=== PATIENT | female | born 1975 | race American Indian/Alaskan Native ===

== ENCOUNTER 2017-08-15 23:05 | Emergency (ER) | payer OTHER ==
[2017-08-16] MEDS ORDERED: CATAPRES PO ONE (01:23)
[2017-08-16] MEDS ORDERED: CATAPRES ONE (01:24)
--- NOTE | 2017-08-16 02:47 | Emergency Department Report ---
- General Chief Complaint: Upper Respiratory Infection Stated Complaint: CONGESTION & COUGH Time Seen by Provider: 08/16/17 02:21 Source: patient Mode of arrival: Ambulatory Limitations: No Limitations - History of Present Illness Initial Comments: Patient is a 41-year-old female presents to ED with her daughter both complaining of cough congestion runny nose x 4 days. Patient states from the daughter around sick niece is about a week ago. She states cough is intermittent and nonproductive. She denies chest pain shortness of breath, dizziness, fever, chills, nausea, vomiting, headaches, blurry vision. MD Complaint: rhinorrhea, nasal congestion Severity: mild Consistency: intermittent Worsens With: nothing Context: sick contacts Associated Symptoms: denies: fever, chills, headache, shortness of breath, abdominal pain, nausea, vomiting, rash, confusion - Related Data Previous Rx's Medication Instructions Recorded Last Taken Type Acetamin/Codeine 120-12Mg/5 ml 5 ml PO TID PRN #60 ml 08/16/17 Unknown Rx [Tylenol/Codeine] D-Methorphan/PE/Acetaminophen 1 each PO TID #30 tablet 08/16/17 Unknown Rx [Tylenol Cold Multi-Symp Caplet] guaiFENesin ER [Mucinex ER] 600 mg PO Q12H #20 tablet.er 08/16/17 Unknown Rx Allergies Allergy/AdvReac Type Severity Reaction Status Date / Time No Known Allergies Allergy Unverified 08/16/17 00:28 ED Review of Systems ROS: Stated complaint: CONGESTION & COUGH Other details as noted in HPI Constitutional: denies: chills, fever Eyes: denies: eye pain, eye discharge, vision change ENT: denies: ear pain, throat pain Respiratory: cough. denies: shortness of breath, wheezing Cardiovascular: denies: chest pain, palpitations Endocrine: no symptoms reported Gastrointestinal: denies: abdominal pain, nausea, diarrhea Genitourinary: denies: urgency, dysuria, discharge Musculoskeletal: denies: back pain, joint swelling, arthralgia Skin: denies: rash, lesions Neurological: denies: headache, weakness, paresthesias Psychiatric: denies: anxiety, depression Hematological/Lymphatic: denies: easy bleeding, easy bruising ED Past Medical Hx - Past Medical History Previous Medical History?: Yes Hx Hypertension: Yes - Social History Smoking Status: Current Every Day Smoker - Medications Home Medications: Home Medications Medication Instructions Recorded Confirmed Last Taken Type Acetamin/Codeine 120-12Mg/5 ml 5 ml PO TID PRN #60 ml 08/16/17 Unknown Rx [Tylenol/Codeine] D-Methorphan/PE/Acetaminophen 1 each PO TID #30 tablet 08/16/17 Unknown Rx [Tylenol Cold Multi-Symp Caplet] guaiFENesin ER [Mucinex ER] 600 mg PO Q12H #20 tablet.er 08/16/17 Unknown Rx ED Physical Exam - General Limitations: No Limitations General appearance: alert, in no apparent distress - Head Head exam: Present: atraumatic, normocephalic - Eye Eye exam: Present: normal appearance - ENT ENT exam: Present: mucous membranes moist - Neck Neck exam: Present: normal inspection, full ROM. Absent: lymphadenopathy - Respiratory Respiratory exam: Present: normal lung sounds bilaterally. Absent: respiratory distress, wheezes, rales, rhonchi, chest wall tenderness - Cardiovascular Cardiovascular Exam: Present: regular rate, normal rhythm. Absent: systolic murmur, diastolic murmur, rubs, gallop - GI/Abdominal GI/Abdominal exam: Present: soft, normal bowel sounds - Extremities Exam Extremities exam: Present: normal inspection - Back Exam Back exam: Present: normal inspection - Neurological Exam Neurological exam: Present: alert, oriented X3 - Psychiatric Psychiatric exam: Present: normal affect, normal mood - Skin Skin exam: Present: warm, dry, intact, normal color. Absent: rash ED Course Vital Signs 08/15/17 08/16/17 08/16/17 23:52 00:31 01:24 Temperature 98.5 F 98.5 F Pulse Rate 96 H 96 H Respiratory 18 18 Rate Blood Pressure 184/108 184/108 184/108 Blood Pressure [Left] O2 Sat by Pulse 99 Oximetry 08/16/17 03:09 Temperature Pulse Rate 87 Respiratory 18 Rate Blood Pressure Blood Pressure 123/88 [Left] O2 Sat by Pulse 99 Oximetry ED Medical Decision Making - Radiology Data Radiology results: report reviewed, image reviewed FINAL REPORT PROCEDURE: XR CHEST ROUTINE 2V TECHNIQUE: PA and lateral chest radiographs were obtained. CPT 98081 HISTORY: congestion and yellow sputum COMPARISON: No prior studies are available for comparison. FINDINGS: Heart: Normal. Mediastinum/Vessels: Normal. Lungs/Pleural space: Normal. Bony thorax: No acute osseous abnormality. Other: IMPRESSION: Normal examination. Transcribed By: CO Dictated By: QUINN MOSLEY MD Electronically Authenticated By: QUINN MOSLEY MD Signed Date/Time: 08/15/17 2474 - Medical Decision Making 41-year-old female presents to the there are with cough ED course: Chest x-ray obtained. This x-ray shows Patient's blood pressure was elevated while in the ED so she felt clonidine 0.1 + patient has also showed hypertension and is not taking her medications. She states is his primary care and has not followed up. Patient was asymptomatic while in ED blood pressure reduced swelling ED Vital signs are normal patient is in no acute distress Patient states she will follow-up with the primary care has referred to for management of her blood pressure as well as a follow-up from an upper respiratory infection. She is in no respiratory distress Blood pressure reduced and normalized prior to discharge Critical care attestation.: If time is entered above; I have spent that time in minutes in the direct care of this critically ill patient, excluding procedure time. ED Disposition Clinical Impression: Uncontrolled hypertension Upper respiratory infection Qualifiers: URI type: unspecified URI Qualified Code(s): J06.9 - Acute upper respiratory infection, unspecified Disposition: DC- TO HOME OR SELFCARE Is pt being admited?: No Does the pt Need Aspirin: No Condition: Stable Instructions: Upper Respiratory Infection (ED), Viral Syndrome (ED), Hypertension (ED) Additional Instructions: Make sure to follow up with the primary care physician as discussed. Take all your medications as you've been prescribed. If you have any worsening symptoms or develop new symptoms please return to ED immediately. Prescriptions: Acetamin/Codeine 120-12Mg/5 ml [Tylenol/Codeine] 5 ml PO TID PRN #60 ml PRN Reason: Pain D-Methorphan/PE/Acetaminophen [Tylenol Cold Multi-Symp Caplet] 1 each PO TID # 30 tablet guaiFENesin ER [Mucinex ER] 600 mg PO Q12H #20 tablet.er Referrals: SHELBY GONZALES MD [Primary Care Provider] - 3-5 Days ZACH GUILLEN MD [Referring] - 3-5 Days [facility] [Outside] - 3-5 Days [facility] [Outside] - 3-5 Days [facility] [Outside] - 3-5 Days Forms: Work/School Release Form(ED) Time of Disposition: 02:51
[2017-08-16 03:09] VITALS: BP 123/88
--- NOTE | 2017-08-16 03:52 | XRay Report ---
FINAL REPORT PROCEDURE: XR CHEST ROUTINE 2V TECHNIQUE: PA and lateral chest radiographs were obtained. CPT 17931 HISTORY: congestion and yellow sputum COMPARISON: No prior studies are available for comparison. FINDINGS: Heart: Normal. Mediastinum/Vessels: Normal. Lungs/Pleural space: Normal. Bony thorax: No acute osseous abnormality. Other: IMPRESSION: Normal examination.
== END 2017-08-16 04:19 | disposition home or self-care (01) ==
LOC: ED 23:05
DX: J06.9 Acute upper respiratory infection, unspecified (principal); I10 Essential (primary) hypertension; F17.200 Nicotine dependence, unspecified, uncomplicated
CPT/HCPCS: 71020; 99283

== ENCOUNTER 2017-10-07 13:06 | Emergency (ER) | payer OTHER ==
--- NOTE | 2017-10-07 19:19 | Emergency Department Report ---
HPI - General Chief Complaint: Upper Respiratory Infection Time Seen by Provider: 10/07/17 18:30 - HPI HPI: Patient here complaining of flulike symptoms since one week which has worsened over 2 days. Reports that she has a history of hypertension and has not taken her blood pressure medication in one year. She says she can't remember what she was taken but it wasn't helping her. She says she's been taking over-the- counter medication but no relief. She reports headache and sore throat with body ache at 7 out of 10. Denies any shortness of breath or chest pain. Reports nasal congestion and runny nose. Reports coughing is worse at night. Patient has access to primary care but she states she doesn't have a doctor. Denies any blurred vision, dizziness, nausea or vomiting. Denies any chest pain or shortness of breath. ED Past Medical Hx - Past Medical History Previous Medical History?: Yes Hx Hypertension: Yes (no meds) - Surgical History Past Surgical History?: No - Family History Family history: hypertension - Social History Smoking Status: Current Every Day Smoker Substance Use Type: None - Medications Home Medications: Home Medications Medication Instructions Recorded Confirmed Last Taken Type Acetamin/Codeine 120-12Mg/5 ml 5 ml PO TID PRN #60 ml 08/16/17 Unknown Rx [Tylenol/Codeine] D-Methorphan/PE/Acetaminophen 1 each PO TID #30 tablet 08/16/17 Unknown Rx [Tylenol Cold Multi-Symp Caplet] guaiFENesin ER [Mucinex ER] 600 mg PO Q12H #20 tablet.er 08/16/17 Unknown Rx Amoxicillin/K Clav Tab [Augmentin 1 tab PO Q12HR 10 Days #20 tab 10/07/17 Unknown Rx 875 mg] Cetirizine HCl [ZyrTEC] 10 mg PO QAM 10 Days #10 capsule 10/07/17 Unknown Rx Fluticasone [Flonase] 1 spray NS QDAY 10 Days #1 bottle 10/07/17 Unknown Rx Lisinopril/Hydrochlorothiazide 1 each PO QAM 30 Days #30 tablet 10/07/17 Unknown Rx [Zestoretic 10-12.5 mg Tablet] amLODIPine [Norvasc] 5 mg PO DAILY 30 Days #30 tab 10/07/17 Unknown Rx guaiFENesin/CODEINE [Robitussin AC] 10 ml PO QHS PRN #50 ml 10/07/17 Unknown Rx ED Review of Systems ROS: Stated complaint: FLU LIKE SYMPTOMS Other details as noted in HPI Comment: All other systems reviewed and negative Constitutional: chills, fever Eyes: denies: eye pain, eye discharge, vision change ENT: throat pain, congestion. denies: ear pain, epistaxis Respiratory: cough. denies: shortness of breath, SOB with exertion, SOB at rest , stridor, wheezing Cardiovascular: denies: chest pain, palpitations, dyspnea on exertion, orthopnea , edema, syncope, paroxysmal nocturnal dyspnea Gastrointestinal: denies: abdominal pain, nausea, vomiting, diarrhea Genitourinary: denies: dysuria, frequency, hematuria Musculoskeletal: myalgia. denies: back pain, joint swelling, arthralgia Skin: denies: rash, pruritus Neurological: headache. denies: weakness, numbness, paresthesias, confusion, abnormal gait, vertigo Physical Exam - Physical Exam Vital Signs: Vital Signs 10/07/17 14:01 Temperature 98.3 F Pulse Rate 87 Respiratory 18 Rate Blood Pressure 175/106 O2 Sat by Pulse 100 Oximetry Vital Signs 10/07/17 10/07/17 10/07/17 14:01 19:46 20:15 Temperature 98.3 F Pulse Rate 87 74 70 Respiratory 18 16 Rate Blood Pressure 175/106 213/124 Blood Pressure 213/124 [Left] O2 Sat by Pulse 100 100 Oximetry 10/07/17 20:52 Temperature Pulse Rate 87 Respiratory 16 Rate Blood Pressure Blood Pressure 167/86 [Left] O2 Sat by Pulse Oximetry General: This is a 41-year-old female that is morbidly obese that is nontoxic in appearance. Physical Exam: Head: Normocephalic, atraumatic, no abrasion, no bruising and no contusion. Eyes: Biateral pupils equal and reactive to light, bilateral EOM intact.. Bilateral conjunctival and sclera without injection, normal accommodation. No nystagmus Mouth: Moist, no pharyngeal exudate or erythema. No peritonsillar abscesses. Uvula is midline and oral airways patent. Ears: TM congested without erythema. Bilateral EAC without any redness swelling or drainage. No mastoid bone tenderness Nose: BiLateral nasal turbinates congested with erythema and clear drainage. Maxillary and frontal sinuses tender to palpate. Neck: Supple, No Cervical adenopathy, full range of motion and no C-spine tenderness. No swelling or tracheal deviation normal reflexes Cardiovascular: S1, S2. Regular rate and rhythm. No murmur. Capillary refill is less then 3 seconds. Blood pressure elevated. Lungs: Clear to auscultate bilaterally. No rhonchi, wheezes or rales. No chest wall tenderness. No chest contusion. No bruising to chest.. Dry cough and no use of accessory muscles MSK: Strength 5/5 in all extremities. No joint deformity or crepitus. Normal inspection. Full range of motion to all extremities. No laceration, abrasion or ecchymotic area noted. Abdomen: Non-tender to palpate in all quadrants, no guarding or rebound tenderness, positive bowel sounds in all quadrants. No CVA tenderness. No hernia, bruit or mass. No rigidity or distention. Extremities: No clubbing, cyanosis or edema. +2 pulses. No neurovascular compromise Skin: Clean, dry and intact. No rash or lesions. Neurological: GCS at 15, Pt is alert and oriented 3 speech is clear . Bilateral hand showroom sales consultant strong and equal. Normal gait. Negative Romberg and no pronator drift. Normal Reflexes. No motor or sensory deficit Back: No vertebral tenderness, no paraspinal tenderness. The bend over and touch his toes without any difficulties. Ambulates without any difficulties. Psych: Normal mood and behavior ED Course Vital Signs 10/07/17 14:01 Temperature 98.3 F Pulse Rate 87 Respiratory 18 Rate Blood Pressure 175/106 O2 Sat by Pulse 100 Oximetry Vital Signs 10/07/17 10/07/17 14:01 19:46 Temperature 98.3 F Pulse Rate 87 74 Respiratory 18 16 Rate Blood Pressure 175/106 Blood Pressure 213/124 [Left] O2 Sat by Pulse 100 100 Oximetry Vital Signs 10/07/17 10/07/17 10/07/17 14:01 19:46 20:15 Temperature 98.3 F Pulse Rate 87 74 70 Respiratory 18 16 Rate Blood Pressure 175/106 213/124 Blood Pressure 213/124 [Left] O2 Sat by Pulse 100 100 Oximetry 10/07/17 20:52 Temperature Pulse Rate 87 Respiratory 16 Rate Blood Pressure Blood Pressure 167/86 [Left] O2 Sat by Pulse Oximetry - Reevaluation(s) Reevaluation #1: 10/07/17 20:06 Patient with elevated blood pressure of 213/124. Patient to receive clonidine and Tylenol and reevaluate blood pressure. Reevaluation #2: 10/07/17 20:52 Patient is stable in no acute distress. Still awaiting for her blood pressure 167/86 status post clonidine. ED Medical Decision Making - Medical Decision Making ED course: Patient reports that she's been having flulike symptoms going on for over a week but worsens over 2 days. 2 days with cough and fever and chills with body aches, sore throats. Patient with elevated blood pressure in triage of 175/106 and says she was on blood pressure medication which she has not taken for a year. She remembers that one of her blood pressure med was Norvasc but cannot remember the others. Patient is without chest pain or shortness of breath, nausea vomiting or dizziness. She has frontal headache which has been relieved with Tylenol 975 mg in emergency room. Repeat blood pressure in the emergency room was that 213/124. Patient was given clonidine 0.2 mg and blood pressure checked 1 hour after clonidine and came down to 167/87. Patient reports relief of headache and she remained without chest pain, shortness of breath, nausea vomiting, dizziness or visual changes with elevated blood pressure I discussed lifestyle modifications such as exercise, weight loss and diet with patient. I discussed with her that she will need to start back on blood pressure medication and I will start her on Norvasc. Patient does have access to primary care but she does not have a primary care doctor so I'll refer her to use [facility] to follow-up in 2 days. I told her to call tomorrow to schedule an appointment and she needs to keep a log of her blood pressure and take to primary care visits for management of chronic hypertension. Patient discharged home from emergency room in stable condition with prescription for guaifenesin with codeine, Flonase, Zyrtec, Augmentin, Norvasc and lisinopril with hydrochlorothiazide. Spoke with Dr. Phillips regarding patient and blood pressure management and he is in agreement. Patient agrees that she'll follow up with primary care physician. Critical care attestation.: If time is entered above; I have spent that time in minutes in the direct care of this critically ill patient, excluding procedure time. ED Disposition Clinical Impression: Asymptomatic hypertensive urgency, Chronic hypertension, Morbid obesity with BMI of 45.0-49.9, adult, Cough in adult, Noncompliance with medication regimen Sinusitis, acute Qualifiers: Sinusitis location: unspecified location Recurrence: not specified as recurrent Qualified Code(s): J01.90 - Acute sinusitis, unspecified Nonintractable episodic headache Qualifiers: Headache type: unspecified Qualified Code(s): R51 - Headache Disposition: DC- TO HOME OR SELFCARE Is pt being admited?: No Does the pt Need Aspirin: No Condition: Stable Instructions: Hypertension (ED), Low Sodium Diet (ED), DASH Eating Plan (ED), Obesity (ED), Weight Management (ED), Sinusitis (ED), Acute Cough (ED), Acute Headache (ED) Additional Instructions: Please increase her fluid intake Please see discharge instructions on diet and exercise, weight management to manage blood pressure. You have high blood pressure and will need to take blood pressure daily and keep a log and take to your primary care physician that I recommended she U2. Please call tomorrow and schedule an appointment for follow-up. Please read discharge instruction on hypertension. You will need to take blood pressure medication as prescribed to manage her chronic high blood pressure Elevated high blood pressure is usually without symptoms and she could have a stroke, heart attack, organ failure and/or . You have a sinus infection and placed on antibiotic, Zyrtec and Flonase. Please do not drive or operate heavy machinery while taking cough medicine as this medication causes drowsiness. Please avoid taken medication with Sudafed, steroid and medication classified as NSAID such as Motrin, naproxen and Advil as MEDICATION can increase your blood pressure Prescriptions: guaiFENesin/CODEINE [Robitussin AC] 10 ml PO QHS PRN #50 ml PRN Reason: Cough amLODIPine [Norvasc] 5 mg PO DAILY 30 Days #30 tab Amoxicillin/K Clav Tab [Augmentin 875 mg] 1 tab PO Q12HR 10 Days #20 tab Cetirizine HCl [ZyrTEC] 10 mg PO QAM 10 Days #10 capsule Fluticasone [Flonase] 1 spray NS QDAY 10 Days #1 bottle Lisinopril/Hydrochlorothiazide [Zestoretic 10-12.5 mg Tablet] 1 each PO QAM 30 Days #30 tablet Referrals: [facility] [Outside] - 10/09/17 Forms: Work/School Release Form(ED)
[2017-10-07] MEDS ORDERED: TYLENOL PO ONE (20:04)
[2017-10-07] MEDS ORDERED: CATAPRES PO ONE (20:04)
[2017-10-07 21:30] VITALS: BP 152/84
== END 2017-10-07 21:30 | disposition home or self-care (01) ==
LOC: ED 13:06
DX: I10 Essential (primary) hypertension (principal); J01.90 Acute sinusitis, unspecified; R51 Headache; E66.01 Morbid (severe) obesity due to excess calories; Z68.41 Body mass index [BMI] 40.0-44.9, adult; F17.200 Nicotine dependence, unspecified, uncomplicated
CPT/HCPCS: 99282